=== PATIENT | female | born 2005 | race Caucasian/White ===

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

== ENCOUNTER 2023-09-15 11:34 | Outpatient (CLI) | payer BC ==
[~2023-09-15 11:34] MED LIST changes: +FEXO1TAB8 PO; +ONDA-103 PO; -ONDA4TAB12 PO
[2023-09-15 12:06] LABS: BASOPHILS % (AUTO) 0.5 % (0-1); EOSINOPHILS # (AUTO) 0.1 X10'3 (0-0.9); EOSINOPHILS % (AUTO) 1.3 % (0-6); HEMATOCRIT 39.8 % (35.0-45.0); HEMOGLOBIN 13.5 g/dl (12.0-16.0); LYMPHOCYTES # (AUTO) 2.3 X10'3 (1.1-4.8); LYMPHOCYTES % (AUTO) 33.2 % (21-51); MEAN CORPUSCULAR HGB CONC 33.8 g/dL (33.0-36.5); MEAN CORPUSCULAR VOLUME 85.7 FL (78-98); MEAN PLATELET VOLUME 7.8 FL (7.4-10.4); MONOCYTES # (AUTO) 0.6 X10'3 (0-0.9); PLATELET COUNT 249 X10'3 (140-440); RED BLOOD COUNT 4.65 X10'6 (4.20-5.60); RED CELL DISTRIBUTION WIDTH 13.3 % (11.5-14.5); WHITE BLOOD COUNT 7.1 X10'3 (4.5-11.0)
[2023-09-15 12:24] LABS: ALANINE AMINOTRANSFERASE 23 U/L (12-78); ALBUMIN 4.3 G/DL (3.4-5.0); ALBUMIN/GLOBULIN RATIO 1.1 (1.1-1.5); ALKALINE PHOSPHATASE 91 IU/L (20-180); ANION GAP 10 (8-16); ASPARTATE AMINO TRANSFERASE 11 U/L (10-37); BILIRUBIN,TOTAL 0.4 MG/DL (0.1-1.0); BLOOD UREA NITROGEN 11 MG/DL (7-18); BUN/CREATININE RATIO 17.5 (10.0-20.0); CALCIUM 9.4 MG/DL (8.5-10.1); CHLORIDE 104 MMOL/L (99-107); CREATININE 0.63 MG/DL (0.40-0.90); GLUCOSE 63 MG/DL (70-104); HEMOGLOBIN A1C 5.2 % (4.5-6.2); POTASSIUM 3.7 MMOL/L (3.5-5.1); SODIUM 138 MMOL/L (135-145); TOTAL CARBON DIOXIDE 24.1 MMOL/L (24-32); TOTAL PROTEIN 8.3 G/DL (6.4-8.2); eGFR > 90 ML/MIN
[2023-09-15 12:33] LABS: THYROID STIMULATING HORMONE 0.43 ulU/ml (0.34-4.50)
[2023-09-16 09:34] LABS: VITAMIN D, 25-HYDROXY 27.2 ng/mL (30.0-100.0)
== END 2023-09-15 23:59 | disposition home or self-care (01) ==
LOC: RAD 11:34
PROVIDERS: ATTEND Physician Assistant Medical
DX: E03.4 Atrophy of thyroid (acquired) (principal); R53.83 Other fatigue; E55.9 Vitamin D deficiency, unspecified; F41.8 Other specified anxiety disorders; Z86.59 Personal history of other mental and behavioral disorders; K58.9 Irritable bowel syndrome, unspecified
CPT/HCPCS: 36415; 80053; 82306; 83036; 84439; 84443; 84480; 85025; 86376

== ENCOUNTER 2024-03-12 08:29 | Outpatient (CLI) | payer BC ==
[2024-03-12] MEDS ORDERED: iohexol 300mg/ml 100ml inj. ONE (08:45)
== END 2024-03-12 23:59 | disposition home or self-care (01) ==
LOC: RAD 08:29
PROVIDERS: ATTEND Nurse Practitioner Family
DX: N83.201 Unspecified ovarian cyst, right side (principal); R10.9 Unspecified abdominal pain
CPT/HCPCS: 74177; Q9967

== ENCOUNTER 2024-05-07 12:59 | Emergency (ER) | payer BC ==
[~2024-05-07] VITALS: Ht 157.5 cm; Wt 58.1 kg
[2024-05-07 14:29] VITALS: BP 124/68; PULSE 64; RESP 16; TEMP 98.1; O2SAT 98
== END 2024-05-07 14:31 | disposition home or self-care (01) ==
LOC: ER 13:00
DX: S62.610A Displaced fracture of proximal phalanx of right index finger, initial encounter for closed fracture (principal); F12.90 Cannabis use, unspecified, uncomplicated; Z88.8 Allergy status to other drugs, medicaments and biological substances; X58.XXXA Exposure to other specified factors, initial encounter; Y93.89 Activity, other specified; Y92.89 Other specified places as the place of occurrence of the external cause; Y99.8 Other external cause status
CPT/HCPCS: 29130; 73140; 99283